=== PATIENT | female | born 1950 | race Caucasian/White ===

== ENCOUNTER 2018-12-13 07:29 | Inpatient (IN) ==
[2018-12-13] MEDS ORDERED: ASPIRIN PO STA (08:14)
[2018-12-13] MEDS ORDERED: TYLENOL PO PRN (08:14)
--- NOTE | 2018-12-13 08:33 | EKG Report ---
Test Performed on : 12/13/2018 08:27:36 AM Test Reason : chest pain Blood Pressure : / mmHG Vent. Rate : 073 BPM Atrial Rate : 073 BPM P-R Int : 182 ms QRS Dur : 082 ms QT Int : 412 ms P-R-T Axes : 055 055 051 degrees QTc Int : 453 ms Normal sinus rhythm. Low voltage QRS Borderline ECG When compared with ECG of 06-AUG-2014 18:44, No significant change was found Confirmed by Luiza Law MD ([id number]) on 12/14/2018 12:59:44 PM
[2018-12-13 08:37] LABS: BASO# 0.07 X1000 (0.0-0.2); BASO% 0.7 % (0.0-0.8); EOS# 0.33 X1000 (0.0-0.7); EOS% 3.2 % (0.0-10.0); HEMOGLOBIN 16.2 g/dL (12.0-16.0); IMM GRAN# 0.02 X1000 (0.0-0.04); IMM GRAN% 0.2 % (0.0-0.5); LYMPH# 3.02 X1000 (1.2-3.4); LYMPH% 29.6 % (20.5-51.1); MCH 31.3 PG (27-31); MCHC 33.8 g/dL (33-37); MCV 92.8 FL (81-99); MONO% 7.8 % (1.7-9.3); MPV 10.1 FL (7.4-10.4); NEUT# 5.96 X1000 (1.4-6.5); NEUT% 58.5 % (42.2-75.2); PLT 276 X1000 (130-400); RBC 5.17 XMIL (4.2-5.4)
[2018-12-13 08:41] LABS: INR 1.02; PROTIME 13.5 Seconds (11.0-16.0)
[2018-12-13 08:59] LABS: AGAP 9; ALB/GLOB RATIO 1.2; ALBUMIN 4.2 g/dL (3.5-5.0); ALKALINE PHOSPHATASE 76 U/L (32-104); BUN 17 mg/dL (8-22); CALCIUM 9.6 mg/dL (8.8-10.2); CHLORIDE 95 mmol/L (98-107); CK PROFILE 50 U/L (24-173); COSMO 281; CREATININE 0.8 mg/dL (0.5-0.9); ESTIMATED GFR > 60; GLUCOSE 204 mg/dL (70-104); GOT 17 U/L (10-30); GPT 18 U/L (10-36); MAGNESIUM 1.8 mg/dL (1.5-2.7); POTASSIUM 4.2 mmol/L (3.5-5.1); SODIUM 137 mmol/L (136-145); TCO2 33 mmol/L (25-35); TOTAL PROTEIN 7.7 g/dL (6.3-8.3)
[2018-12-13] MEDS: NITROGLYCERIN TOP SCH ×3 (09:09→21:11)
--- NOTE | 2018-12-13 09:24 | Diag Imaging Result Doc PS360 ---
CHEST-2 VIEWS - 12/13/2018 INDICATION: SOB COMPARISON: 08/07/2014 FINDINGS: There is flattening of the hemidiaphragms on the lateral view indicating COPD. The lungs are clear. Heart size is normal. No pneumothorax or pleural effusion. IMPRESSION: COPD. No acute disease. Electronically signed by Leander Vasquez 12/13/2018 9:21 AM
[2018-12-13] MEDS ORDERED: XYLOCAINE 1% ONE (10:42)
[2018-12-13] MEDS ORDERED: HEPARIN 1000 UNITS/NS 2,000 UNIT/1,000 ML IV.SOLN ONE (10:43)
--- NOTE | 2018-12-13 11:06 | CONSULTATION ---
DATE OF CONSULTATION: 12/13/2018 IMPRESSION: 1. Recurrent bilateral arm discomfort with some associated chest discomfort as well as exertional shortness of breath. Symptoms potentially represent angina in this patient with multiple risk factors for coronary disease. 2. Type 2 diabetes mellitus requiring insulin. 3. Hypertension. 4. Hyperlipidemia. 5. Chronic smoking. 6. Family history of early coronary disease. RECOMMENDATIONS: Agree with pursuit of cardiac catheterization, selective coronary angiography. The rationale for this approach was discussed with the patient including potential hazards. She wished to proceed. She actually has had a previous cardiac catheterization several years ago. HISTORY: This 68-year-old white female with past history of type 2 diabetes mellitus requiring insulin, hypertension, hyperlipidemia, chronic cigarette use, and family history of coronary disease was admitted for further evaluation of bilateral arm discomfort with some associated chest discomfort as well as exertional shortness of breath. She is suspected of having underlying atherosclerotic coronary disease. She relates a 2-month history of bilateral arm discomfort characterized as a tingling. Symptoms are nonexertional and may last constantly for hours if not days. She also describes exertional shortness of breath which has become rather prominent. There has been no orthopnea. She does have peripheral neuropathy in association with her longstanding diabetes mellitus. Unfortunately, she continues to smoke, although she is cutting back significantly. She also has history of cervical spine disease and has had 2 previous C-spine surgeries. She also has history of obstructive sleep apnea. PAST MEDICAL HISTORY: 1. Diabetes mellitus type 2 requiring insulin. 2. Hypertension. 3. Hyperlipidemia. 4. Gastroesophageal reflux disease. 5. Obstructive sleep apnea. 6. Peripheral neuropathy, probably related to diabetes mellitus. PAST SURGICAL HISTORY: 1. Appendectomy. 2. Unspecified back surgery. 3. Two previous cervical spine surgeries. 4. Unspecified bladder surgery. 5. Cataract extraction. 6. Cholecystectomy. 7. Hysterectomy. 8. Remote cardiac catheterization. ALLERGIES: She has multiple drug allergies as listed. MEDICATIONS: As listed. SOCIAL HISTORY: She is . She smokes cigarettes. She previously smoked 1 pack of cigarettes per day for approximately 35 years but is curtailing her smoking. She does not use alcohol. FAMILY HISTORY: Positive for early coronary disease. REVIEW OF SYSTEMS: Noncontributory beyond history of present illness.Gastrointestinal: Noncontributory beyond history of present illness. Constitutional: Noncontributory beyond history of present illness. Remainder of review of systems negative/noncontributory beyond history of present illness with 14 total systems reviewed. PHYSICAL EXAMINATION: General: An obese, older white female in no distress. Vital Signs: Blood pressure 120/76, heart rate 76 and regular. HEENT: Extraocular muscles appear intact. Mucous membranes are moist. Neck: Supple without jugular venous distention. There are no carotid bruits. Chest: Clear to auscultation bilaterally. Cardiac Exam: Regular rate and rhythm without appreciable murmur or gallop. Abdomen: Soft. Bowel sounds are normal. Extremities: Without edema. Neurologic: Exam reveals her to be alert and fully oriented. Speech is fluent. She moves all 4 extremities equally well. Skin: Warm and dry. Psychiatric: Reveals mood to be appropriate. DATA: A 12-lead EKG is reviewed and demonstrates normal sinus rhythm and low voltage QRS. LABORATORY DATA: A white blood cell count 10.2, hematocrit 48.5, hemoglobin 16.2, platelet count 276,000. Pro-time 13.5, INR 1.02. Sodium 137, potassium 4.2, chloride 95, carbon dioxide 33, BUN 17, creatinine 0.8, glucose 204. Troponin T 0.024. CPK 50. cc: MD Luca Centeno MD
[2018-12-13] MEDS ORDERED: VERSED ONE (11:17)
[2018-12-13] MEDS ORDERED: ANESTHESIA PB SET 88 IN 5742 ONE (11:18)
[2018-12-13] MEDS ORDERED: NS 1,000 ML ONE (11:18)
[2018-12-13] MEDS ORDERED: MORPHINE ONE (11:18)
[2018-12-13] MEDS ORDERED: CLAVE TWINSITE 32 IN 11959 ONE (11:18)
[2018-12-13] MEDS ORDERED: ASPIRIN ONE (12:38)
--- NOTE | 2018-12-13 13:26 | EKG Report ---
Test Performed on : 12/13/2018 1:12:54 PM Test Reason : S/P [facility] Blood Pressure : / mmHG Vent. Rate : 077 BPM Atrial Rate : 077 BPM P-R Int : 184 ms QRS Dur : 078 ms QT Int : 414 ms P-R-T Axes : 066 057 049 degrees QTc Int : 468 ms Normal sinus rhythm. Low voltage QRS Cannot rule out Anterior infarct , age undetermined Abnormal ECG When compared with ECG of 13-DEC-2018 08:27, (Unconfirmed) No significant change was found Confirmed by Luiza Law MD ([id number]) on 12/14/2018 1:00:02 PM
[2018-12-13] MEDS ORDERED: NS 1,000 ML IV SCH (14:00)
--- NOTE | 2018-12-13 18:56 | HISTORY AND PHYSICAL ---
CHIEF COMPLAINT: Exertional shortness of breath radiating to the back and both arms for the last few days. HISTORY OF PRESENT ILLNESS: She is a 68-year-old white female who came to my office with above symptoms worsening for the last few days. She had a previous cardiac workup done at [facility] in October 2017. Dr. Petersen reported she had some fixed defect in the distal anterior septal no reversible ischemia. Low risk study at that time. The patient is also noncompliant with diabetes management. Symptoms are equal into the angina. Follow up on cardiac enzymes were negative. I discussed the case with Dr. Chavarria who is radio control crane operator and admitted directly from my office for left heart catheterization. As a result, hospital admission was warranted. PAST MEDICAL HISTORY: Allergic rhinitis, diabetes, COPD, glaucoma, hyperlipidemia, hypertension, sleep apnea. PAST SURGICAL HISTORY: Appendectomy, cholecystectomy, hysterectomy, C-spine fusion, surgery and bladder neck suspension surgery. ALLERGIES: CALI inhibitors, basically nonproductive cough. BMX, Glucophage, latex, Levaquin, Macrobid. MEDICATIONS: Advair, atenolol 50 daily, Lipitor 20 daily, Prozac 40 daily, glipizide 10 p.o. b.i.d., indapamide 1.25 mg daily, Januvia 100 daily, Mobic 15 daily, Protonix 40 daily. Tresiba 30 units subcu daily, Tricor 48 mg daily. SOCIAL HISTORY: She is single. , 3 children. Disabled. No smoking. No alcohol. FAMILY HISTORY: Father of heart attack at 78. Mom of heart attack at 82. HEALTH MAINTENANCE: Flu vaccine 2014, Pneumonia vaccine 2014, mammography 12/2016, DEXA scan 10/2015. Colonoscopy [address] Gallo. REVIEW OF SYSTEMS: HEENT: No headache. No vision problem. No earache. No sore throat. Chronic neck pain. Cardiopulmonary exertional shortness of breath chest pain going to the back in both arms. No PND. No orthopnea. Gastrointestinal: No nausea, vomiting, abdominal pain. Genitourinary: No history of hesitancy, frequency, dysuria. No swelling of legs. No joint pain. Neurologic: No focal symptoms or weakness. PHYSICAL EXAMINATION: VITAL SIGNS: Temperature is 98 degrees, pulse, blood pressure is stable. HEENT: Atraumatic, normocephalic. Pupils equal, react to light. TMs are normal. Nose and throat within normal limits. NECK: Supple. No lymphadenopathy. No goiter. CHEST: Bilateral air entry. HEART: Sounds are regular. GASTROINTESTINAL: Belly is soft, nontender. Good bowel sounds. EXTREMITIES: No peripheral edema or cyanosis. NEUROLOGIC: No obvious neurological deficits. INVESTIGATIONS: CBC: White cell count 10, hematocrit 48, platelets 276,000. PT 13, INR 1.0, SMA 7 is normal. LFTs were normal. Glucose 204. CK, cardiac enzymes were negative proBNP 980. Chest x-ray, COPD. EKG normal sinus nothing acute. ASSESSMENT AND PLAN: 68-year-old white female admitted to the hospital with exertional chest pain equivalent to angina. Previous stress test was negative. In light of risk factors, admitted directly for left heart catheterization. Plan is cardiology consult and based on the left heart catheterization further recommendations will be followed. Continue aspirin nitroglycerin patch and reconcile home medications. cc: Luca Kwok MD MTDD
[2018-12-13] MEDS ORDERED: NICODERM PATCH TD PRN (20:54)
[2018-12-13] MEDS ORDERED: COREG PO SCH (21:00)
[2018-12-13] MEDS: HUMULIN R SUBQ SCH (21:22)
[2018-12-14 04:22] VITALS: BP 93/67
[2018-12-14] MEDS: NITROGLYCERIN TOP SCH (06:58)
[2018-12-14] MEDS: HUMULIN R SUBQ SCH (06:59)
[2018-12-14 08:03] LABS: CHOLESTEROL 176 mg/dL (0-200); HDL 25 mg/dL (45-65); TRIGLYCERIDES 426 mg/dL (35-135)
[2018-12-14] MEDS ORDERED: COZAAR PO SCH (09:00)
[2018-12-14] MEDS ORDERED: ASPIRIN EC PO SCH (09:00)
[2018-12-14] MEDS ORDERED: LIPITOR PO SCH (21:00)
--- NOTE | 2018-12-16 23:44 | DISCHARGE SUMMARY ---
ADMISSION DATE: 12/13/2018 DISCHARGE DATE: 12/14/2018 DISCHARGING DIAGNOSIS: Exertional shortness of breath due to significant coronary artery disease. Reported circumflex, left anterior descending, and coronary artery disease. SECONDARY DIAGNOSES: 1. Allergic rhinitis. 2. Chronic obstructive pulmonary disease. 3. Type 2 diabetes, poorly controlled with noncompliance. 4. Glaucoma. 5. Hyperlipidemia. 6. Hypertension. 7. Sleep apnea. CONSULT: Dr. Chavarria. PROCEDURES: Left heart catheterization. I was told he has significant CAD lesions, the report was not transcribed. BRIEF HISTORY: Please see the H and P that was done on 12/13/2018. In brief, she is a 68-year- old white female, came in with exertional shortness of breath and pain going to the back along both arms for the last few weeks. Subsequent workup, chest x-ray, EKG, cardiac enzymes were all normal. She has a prior stress test a year ago that was unremarkable. In light of escalating symptoms, the patient was admitted directly from my office for left heart catheterization. Dr. Chavarria did the catheterization and transferred to [facility] for PCI for interventions. LABS: CBC: White cell count 10, hematocrit 48, platelets 276,000. PT/INR is normal. SMA-7: Sodium 137, potassium 4.2, BUN 17, creatinine 0.8. Glucose 277. ProBNP 980. Triglycerides 426, cholesterol 176, HDL 25. The patient will be followed in my office to optimize the treatment for secondary prevention. DISCHARGE INSTRUCTIONS ARE FOLLOWS: Brittanie 60 mg p.o. b.i.d., insulin, Levemir 20 units subcu in the evening, glyburide 10 daily, Prozac 40 daily, indapamide 125 daily, Advair 250/50 one puff p.o. b.i.d., lisinopril 10 daily, Spiriva as needed, aspirin 325 daily, nitroglycerin. Also, keep the LDL less than 70 with high dose statin drugs, which includes Lipitor 80 daily. Keep the A1c below 7. Follow up in my office after PCI from [facility]. cc: MD Freddie Swartz MD
--- NOTE | 2018-12-18 09:42 | CARDIAC CATH REPORT ---
PROCEDURE NAME: - PROCEDURE PERFORMED: Left heart catheterization with selective coronary angiography. INDICATIONS: Exertional dyspnea in patient with multiple risk factors for coronary atherosclerosis, including long-standing diabetes mellitus, smoking, hypertension, hyperlipidemia, and family history of early coronary atherosclerosis. ENTRY SITE: Right femoral artery. CATHETERS USED: A 5-Moroccan JL-4, 3DRC, and angled pigtail. TECHNIQUE: After intravenous sedation with morphine and Versed, local anesthesia with lidocaine was applied over the right femoral artery. Arterial access was established with placement of a 5- Moroccan sheath in the right femoral artery using modified Seldinger technique. Selective coronary angiography was performed. The patient subsequently underwent left heart catheterization with left ventriculography. Upon completion of the procedure, arterial sheath was removed from right femoral artery, and hemostasis facilitated with manual pressure. The patient tolerated the procedure without apparent complications. FINDINGS: Hemodynamics: Aortic pressure 121/61 with a mean of 90. Left ventricular pressure 119 over EDP of 14. Comments on Hemodynamics: There is no significant gradient across the aortic valve demonstrated on pullback of the left ventricle. ANGIOGRAPHY: 1. Left ventriculogram. The left ventricle is of normal size. There is basal to mid inferior wall akinesis. Estimated left ventricular ejection fraction is 60%. There is no significant mitral regurgitation. 2. Left main coronary. The left main coronary is free of significant coronary stenosis. 3. Left anterior descending coronary. The left anterior descending coronary demonstrates mild (30%) focal stenosis proximally. The remainder of the left anterior descending coronary artery and its branches are free of significant coronary stenosis. 4. Left circumflex coronary. The left circumflex coronary demonstrates a subtotal (greater 95%) stenosis distally, isolating a significant posterolateral branch. The obtuse marginal demonstrates a moderate (50% to 60%) proximal stenosis. 5. Right coronary. The dominant right coronary demonstrates mild (40%) focal stenosis proximally. The mid right coronary demonstrates a severe (80% to 90%) focal stenosis. The distal right coronary is occluded with some staining suggesting the possibility of recent occlusion. There are [id number] collaterals filling the posterior descending artery. CONCLUSIONS: 1. Estimated left ventricular ejection fraction approximately 60% despite akinesis of basal-to- mid inferior wall on MAHONEY projection. 2. Right dominant coronary anatomy as described with mild stenosis in proximal left anterior descending coronary, severe stenosis in distal left circumflex coronary, isolating significant sized posterolateral branch, moderate stenosis in obtuse marginal, severe stenosis in mid right coronary artery, and occlusion of distal right coronary artery before posterior descending artery, with some staining to suggest the possibility of recent occlusion. RECOMMENDATIONS: Favor percutaneous coronary intervention on distal left circumflex coronary, and possibly effort to reopen distal right coronary artery as permitted. cc: MD Luca Centeno MD
== END 2018-12-14 07:39 | disposition short-term general hospital (02) | DRG 287 ==
LOC: DIRADM 07:29 → 3N 07:48 → 2N 13:01
PROVIDERS: ADMIT Internal Medicine; ATTEND Internal Medicine